=== PATIENT | female | born 1950 | race Caucasian/White ===

== ENCOUNTER → 2021-08-13 13:43 | Outpatient (CLI) | payer MEDICARE, SELFPAY ==
--- NOTE | 2021-08-13 13:57 | DI.RAD.S_ITS ---
PROCEDURE: XR LUMBAR SPINE MIN 4V INDICATIONS: low back pain TECHNIQUE: 5 views of the lumbar spine were acquired, including bilateral oblique views. COMPARISON: [facility], [facility], XR L-SPINE 2-3V, 02/13/2019, 16:55. FINDINGS: Bones: 5 nonrib-bearing vertebrae are present. There is mild grade 1 anterolisthesis of L4 on L5. Mild multilevel disc space narrowing and endplate osteophyte formation. Facet hypertrophy throughout the mid and lower lumbar spine. No vertebral body compression fractures. No suspicious bony lesions. Soft tissues: Overlying bowel gas pattern is normal. No suspicious soft tissue calcifications. IMPRESSION: Multilevel degenerative disc and facet disease. No acute fracture. No osseous lesion. If symptoms and/or clinical suspicion for pathology persist, further assessment with repeat, or advanced imaging (e.g., CT, MRI, or bone scan) may be helpful for further assessment. Dictated by: Steven Manning M.D. on 08/13/2021 at 16:12 Approved by: Steven Manning M.D. on 08/13/2021 at 16:38
--- NOTE | 2021-08-13 13:57 | DI.RAD.S_ITS ---
PROCEDURE: XR HIP W PEL IF DONE BILAT 2V INDICATIONS: bilateral hip pain TECHNIQUE: AP pelvis with lateral view(s) of the bilateral hip(s). COMPARISON: None. FINDINGS: Bones: No fractures or dislocations. Pelvic ring appears intact. No suspicious bony lesions. Mild joint space narrowing and periarticular osteophyte formation at the bilateral hip joints. Soft tissues: The visualized bowel gas pattern is normal. No suspicious soft tissue calcifications. IMPRESSION: Bilateral hip osteoarthritis. No acute fracture. No osseous lesion. If symptoms and/or clinical suspicion for pathology persist, further assessment with repeat, or advanced imaging (e.g., CT, MRI, or bone scan) may be helpful for further assessment. Dictated by: Steven Manning M.D. on 08/13/2021 at 16:14 Approved by: Steven Manning M.D. on 08/13/2021 at 16:40
== END ==
PROVIDERS: Referring Provider Physical Medicine & Rehabilitation; Visit Provider Physical Medicine & Rehabilitation
DX: M25.552 Pain in left hip (principal); M25.551 Pain in right hip; M54.50 Low back pain, unspecified; M16.0 Bilateral primary osteoarthritis of hip; M54.16 Radiculopathy, lumbar region; M43.16 Spondylolisthesis, lumbar region; F31.62 Bipolar disorder, current episode mixed, moderate; E66.01 Morbid (severe) obesity due to excess calories; R26.81 Unsteadiness on feet; Z68.41 Body mass index [BMI] 40.0-44.9, adult
CPT/HCPCS: 72110; 73521; 99214

== ENCOUNTER → 2021-09-03 13:20 | Outpatient (CLI) | payer MEDICARE, SELFPAY | PROVIDERS: PCP Family Medicine; Referring Provider Physical Medicine & Rehabilitation; Visit Provider Physical Medicine & Rehabilitation | DX: M43.16 Spondylolisthesis, lumbar region (principal); M54.16 Radiculopathy, lumbar region; Z53.20 Procedure and treatment not carried out because of patient's decision for unspecified reasons ==

== ENCOUNTER 2022-10-06 14:19 | Outpatient (CLI) | payer MEDICARE, SELFPAY ==
[2022-10-06] VITALS (8 sets, daily range): BP systolic 118–141; BP diastolic 55–75; PULSE 70–76; RESP 16–20; TEMP 36.4; O2SAT 95–100
--- NOTE | 2022-10-06 14:21 | DI.RAD.S_ITS ---
PROCEDURE: PAIN L INTERLAMINAR/CAUDAL INJ INDICATIONS: SPONDYLOSIS COMPARISON: None. FINDINGS: Fluoroscopic spot filming was performed to verify placement of spinal needles at the L5-S1 interlaminar space level(s), as labeled on the films. Appropriate location(s) of the needle tip(s) was confirmed by injection of iodinated contrast. IMPRESSION: Access needle in the L5-S1 interlaminar space for translaminar epidural steroid injection Dictated by: Nel Santizo MD, PhD on 10/06/2022 at 16:11 Approved by: Nel Santizo MD, PhD on 10/06/2022 at 16:11
[2022-10-06] MEDS: MIDAZOLAM 2 MG/2 ML VIAL IV (15:33)
[2022-10-06] MEDS: IOPAMIDOL 15 ML VIAL 3 ML INJ (15:38)
[2022-10-06] MEDS: DEXAMETHASONE 10 MG/ML VIAL 20 MG INJ (15:39)
[2022-10-06] MEDS: BUPIVACAINE 0.25% (PF) VIAL 2 ML INJ (15:39)
[2022-10-06] MEDS: BETAMETHASONE 30 MG/5 ML MDV 6 MG INJ (15:39)
--- NOTE | 2022-10-06 15:51 | P.PCN_ITS ---
Date/Time/Diagnoses Date of procedure: 10/06/22 Time of procedure: 15:51 Pre-procedure diagnosis: 1. HNP WITH RADICULAR FEATURES, 2. MULTILEVEL CENTRAL STENOSIS, Post-procedure diagnosis: same Procedure Notes Procedure: 1. FLUOROSCOPICALLY GUIDED CONTRAST CONTROLLED INTERLAMINAR EPIDURAL STEROID INJECTION - L5/S1 Indications: Meme is referred by Dr. Salvador for treatment of Bilateral Foraminal Stenosis L>R LE symptoms. Physician: Parker Cramer Total Fluoroscopy time (seconds): 7 Total sedation minutes: 11 Complications: none Procedure in detail & Post-procedure care: FINDINGS Multilevel Central Spinal Stenosis with Nerve Root Compression DESCRIPTION OF PROCEDURE Fluoroscopically guided, contrast-controlled L5/S1 translaminar epidural steroid injection. Following review of allergy and review of potential side effects and complications, including, but not necessarily limited to, infection, allergic reaction, local tissue breakdown, temporary as well as permanent nerve injury, paralysis, stroke and possible , the patient indicated that the patient understood and agreed to proceed. An informed consent document was signed by the patient, witnessed by a nurse, and placed in the patient's chart. Additionally, other treatment options including modalities, medications, and physical therapy were reviewed with the patient. After review of previous anaesthesic history and IV conscious sedation the patient was deemed safe to proceed with today?s procedure with IV conscious sedation as ASA class II designation. Safety time-out was performed to confirm patient ID, procedure to be performed and site of procedure. IV sedation was accomplished with a combination of 2mg of Versed administered by the RN after DO order, titrated to patient comfort during the course of the procedure while the patient remained responsive to all verbal commands. In the prone position, following sterile prep and drape of the lumbar region, the L5/S1 translaminar space was identified fluoroscopically. The skin was anesthetized via a 25-gauge, 1.5-inch needle with 1% lidocaine solution. At this point, a 22-gauge short bevel spinal needle was atraumatically introduced and advanced under fluoroscopic guidance into the region of the L5/S1 translaminar space. Depth was confirmed on lateral view. Radiological data, including multiple fluoroscopic views of the lumbar spine, reveal a spinal needle at the L5/S1 translaminar space. Lateral views then show placement of the needle in the epidural space. Subsequent views show contrast material flowing superiorly and inferiorly in the epidural space. No vascular or intrathecal uptake is observed. At this point, using loss of resistance technique with saline and air, the epidural space was entered. This was confirmed following negative aspiration with injection of approximately 1.5cc of Isovue 200, showing excellent epidural flow without vascular or intrathecal uptake. At this point, 1 cc of 1% lidoc odette solution combined with 3cc or 20mg of dexamethasone and 6mg of betamethasone was injected without incident. The patent tolerated the procedure without signs of symptoms of complications prior to transfer to the recovery area for further monitoring. The patient was then transferred to the recovery area where they were observed for an appropriate period of time after the injection. The patient reported a VAS score of 6 prior to the procedure and a post-procedure VAS of 0. POST OP INSTRUCTIONS The patient was provided a Pain Log to continue to record their response to the target-specific procedure prior to follow-up visit with their referring physician. Additionally, specific post-injection care instructions and a contact number to our office were provided if concerns arise regarding possible complications associated with the procedure are suspected.
== END 2022-10-06 16:05 | disposition home or self-care (01) ==
PROVIDERS: PCP Family Medicine; Referring Provider Physical Medicine & Rehabilitation; Visit Provider Physical Medicine & Rehabilitation
DX: M51.17 Intervertebral disc disorders with radiculopathy, lumbosacral region (principal); M48.07 Spinal stenosis, lumbosacral region
CPT/HCPCS: 62323; 99152; J0702; J1100; J2250; J3490

== ENCOUNTER → 2023-08-26 12:00 | Outpatient (CLI) | payer MEDICARE, SELFPAY | PROVIDERS: PCP Family Medicine; Referring Provider Internal Medicine Critical Care Medicine; Visit Provider Internal Medicine Critical Care Medicine | DX: R06.02 Shortness of breath (principal); J98.8 Other specified respiratory disorders | CPT/HCPCS: 94060; 94726; 94729 ==

== ENCOUNTER 2023-09-02 09:49 | Outpatient (CLI) | payer MEDICARE, SELFPAY ==
[2023-09-02] VITALS (8 sets, daily range): BP systolic 126–184; BP diastolic 61–78; PULSE 66–73; RESP 16–24; TEMP 36.4; O2SAT 93–96
--- NOTE | 2023-09-02 09:50 | DI.RAD.S_ITS ---
PROCEDURE: PAIN L INTERLAMINAR/CAUDAL INJ INDICATIONS: SPONDYLOSIS COMPARISON: , , PAIN L INTERLAMINAR/CAUDAL INJ, 10/06/2022, 16:39. FINDINGS: On Fluoroscopic spot filming was performed to verify placement of a spinal needle at the L5-S1 level, as labeled on the films. Appropriate location of the needle tip was confirmed by injection of iodinated contrast. IMPRESSION: No significant intraprocedural abnormality. Dictated by: Lizandro Mendez M.D. on 09/02/2023 at 11:26 Approved by: Lizandro Mendez M.D. on 09/02/2023 at 11:27
[2023-09-02] MEDS: MIDAZOLAM 2 MG/2 ML VIAL IV (11:00)
[2023-09-02] MEDS: BETAMETHASONE 30 MG/5 ML MDV 6 MG INJ (11:03)
[2023-09-02] MEDS: iopamidoL 15 ML VIAL 3 ML INJ (11:03)
[2023-09-02] MEDS: DEXAMETHASONE 10 MG/ML VIAL INJ (11:03)
[2023-09-02] MEDS: BUPIVACAINE 0.25% (PF) VIAL 2 ML INJ (11:04)
--- NOTE | 2023-09-02 11:12 | PM.PROC.IR.1 ---
Date/Time/Diagnoses Date of procedure: 09/02/23 Time of procedure: 11:12 Pre-procedure diagnosis: 1. HNP WITH RADICULAR FEATURES, 2. MULTILEVEL CENTRAL STENOSIS, Post-procedure diagnosis: same Procedure Notes Procedure: 1. FLUOROSCOPICALLY GUIDED CONTRAST CONTROLLED INTERLAMINAR EPIDURAL STEROID INJECTION - L5/S1 Indications: Meme is referred by Dr. Salvador for treatment of Bilateral Foraminal Stenosis L>R LE symptoms. Physician: Parker Cramer Total Fluoroscopy time (seconds): 12 Total sedation minutes: 11 Complications: none Procedure in detail & Post-procedure care: FINDINGS Multilevel Central Spinal Stenosis with Nerve Root Compression DESCRIPTION OF PROCEDURE Fluoroscopically guided, contrast-controlled L5/S1 translaminar epidural steroid injection. Following review of allergy and review of potential side effects and complications, including, but not necessarily limited to, infection, allergic reaction, local tissue breakdown, temporary as well as permanent nerve injury, paralysis, stroke and possible , the patient indicated that the patient understood and agreed to proceed. An informed consent document was signed by the patient, witnessed by a nurse, and placed in the patient's chart. Additionally, other treatment options including modalities, medications, and physical therapy were reviewed with the patient. After review of previous anaesthesic history and IV conscious sedation the patient was deemed safe to proceed with today?s procedure with IV conscious sedation as ASA class II designation. Safety time-out was performed to confirm patient ID, procedure to be performed and site of procedure. IV sedation was accomplished with a combination of 2mg of Versed administered by the RN after DO order, titrated to patient comfort during the course of the procedure while the patient remained responsive to all verbal commands. In the prone position, following sterile prep and drape of the lumbar region, the L5/S1 translaminar space was identified fluoroscopically. The skin was anesthetized via a 25-gauge, 1.5-inch needle with 1% lidocaine solution. At this point, a 22-gauge short bevel spinal needle was atraumatically introduced and advanced under fluoroscopic guidance into the region of the L5/S1 translaminar space. Depth was confirmed on lateral view. Radiological data, including multiple fluoroscopic views of the lumbar spine, reveal a spinal needle at the L5/S1 translaminar space. Lateral views then show placement of the needle in the epidural space. Subsequent views show contrast material flowing superiorly and inferiorly in the epidural space. No vascular or intrathecal uptake is observed. At this point, using loss of resistance technique with saline and air, the epidural space was entered. This was confirmed following negative aspiration with injection of approximately 1.5cc of Isovue 200, showing excellent epidural flow without vascular or intrathecal uptake. At this point, 1cc of 1% lidocaine solution combined with 2cc or 10mg of dexamethasone and 6mg of betamethasone was injected without incident. The patent tolerated the procedure without signs of symptoms of complications prior to transfer to the recovery area for further monitoring. The patient was then transferred to the recovery area where they were observed for an appropriate period of time after the injection. The patient reported a VAS score of 6 prior to the procedure and a post-procedure VAS of 0. POST OP INSTRUCTIONS The patient was provided a Pain Log to continue to record their response to the target-specific procedure prior to follow-up visit with their referring physician. Additionally, specific post-injection care instructions and a contact number to our office were provided if concerns arise regarding possible complications associated with the procedure are suspected.
== END 2023-09-02 11:39 | disposition home or self-care (01) ==
PROVIDERS: PCP Family Medicine; Referring Provider Physical Medicine & Rehabilitation; Visit Provider Physical Medicine & Rehabilitation
DX: M51.17 Intervertebral disc disorders with radiculopathy, lumbosacral region (principal); M48.07 Spinal stenosis, lumbosacral region
CPT/HCPCS: 62323; 99152; J0702; J1100; J2250; J3490

== ENCOUNTER → 2023-10-13 10:03 | Outpatient (CLI) | payer MEDICARE, SELFPAY ==
--- NOTE | 2023-10-13 10:30 | DI.CT.S_ITS ---
PROCEDURE: CT CHEST W CON INDICATIONS: Restrictive lung disease TECHNIQUE: After the administration of intravenous contrast, 5 mm thick sections acquired from the pulmonary apices to the posterior costophrenic angles. 1 mm axial lung, 5 mm thick coronal and sagittal reformats and 7 mm axial MIP were acquired. For radiation dose reduction, the following was used: automated exposure control, adjustment of mA and/or kV according to patient size. COMPARISON: [facility], CT, CT ANGIO CHEST PE, 09/16/2021, 1:44. FINDINGS: Image quality: Diagnostic. Lungs and pleura: No acute air space opacities. No pleural effusions or pneumothorax. Central and peripheral airways are patent and normal in caliber. Mediastinum: Heart size is normal. No pericardial effusion. No mediastinal or hilar adenopathy by size criteria. Thoracic aorta and central pulmonary arteries are normal in size. Calcification of the aortic valve. Minimal LAD and left circumflex coronary vessel calcification. Minimal calcification of the thoracic aorta. Esophagus is normal in caliber. No hiatal hernia. Bones and chest wall: No suspicious bony lesions. No vertebral body compression fractures moderate multilevel degenerative changes of the spine. Vacuum phenomenon in the T8 vertebral body. No axillary or supraclavicular adenopathy by size criteria. No thyroid nodules which require sonographic follow up, per consensus guidelines. Hypodense nodule in the isthmus measuring 9 mm (2/14). Upper Abdomen: Visualized upper abdomen demonstrates no acute findings. Compared to CT dated September 16, 2021, left adrenal mass is similar to slightly increased in size measuring 4.1 x 3.4 cm (2/60), previously 3.8 x 3.2 cm (4/139) with new small hypodense foci . IMPRESSION: 1. Compared to CT chest dated September 16, 2021, no new or enlarging solid pulmonary nodule or consolidation. 2. Partially visualized left adrenal mass is similar to slightly increased in size measuring 4.1 x 3.4 cm, previously 3.8 x 3.2 cm with new small hypodense foci which is indeterminate. Recommend a nonemergent MRI adrenal mass protocol for further evaluation. Dictated by: Ronnie Paez M.D. on 10/13/2023 at 20:00 Approved by: Ronnie Paez M.D. on 10/13/2023 at 20:18
== END ==
PROVIDERS: PCP Family Medicine; Referring Provider Internal Medicine Critical Care Medicine; Visit Provider Internal Medicine Critical Care Medicine
DX: J98.4 Other disorders of lung (principal); E27.9 Disorder of adrenal gland, unspecified
CPT/HCPCS: 71260; Q9967

== ENCOUNTER 2024-01-04 13:28 | Outpatient (CLI) | payer MEDICARE, SELFPAY ==
[2024-01-04] VITALS (7 sets, daily range): BP systolic 151–185; BP diastolic 66–93; PULSE 79–87; RESP 12–20; TEMP 36.6; O2SAT 93–96
--- NOTE | 2024-01-04 14:30 | DI.RAD.S_ITS ---
PROCEDURE: PAIN L INTERLAMINAR/CAUDAL INJ INDICATIONS: STENOSIS COMPARISON: [facility], XA, PAIN L INTERLAMINAR/CAUDAL INJ, 09/02/2023, 11:03. FINDINGS: Fluoroscopic spot filming was performed to verify placement of spinal needles at the left L4-L5 level(s), as labeled on the films. Appropriate location(s) of the needle tip(s) was confirmed by injection of iodinated contrast. IMPRESSION: Intraoperative guidance provided. Dictated by: John Headley M.D. on 01/04/2024 at 17:49 Approved by: John Headley M.D. on 01/04/2024 at 17:50
[2024-01-04] MEDS: MIDAZOLAM 2 MG/2 ML VIAL IV (15:00)
[2024-01-04] MEDS: BETAMETHASONE 30 MG/5 ML MDV 6 MG INJ (15:06)
[2024-01-04] MEDS: BUPIVACAINE 0.25% (PF) VIAL 2 ML INJ (15:06)
[2024-01-04] MEDS: DEXAMETHASONE 10 MG/ML VIAL INJ (15:07)
[2024-01-04] MEDS: iopamidoL 15 ML VIAL 3 ML INJ (15:07)
--- NOTE | 2024-01-04 15:22 | P.PCN_ITS ---
Date/Time/Diagnoses Date of procedure: 01/04/24 Time of procedure: 15:22 Pre-procedure diagnosis: 1. HNP WITH RADICULAR FEATURES, 2. MULTILEVEL CENTRAL STENOSIS, Post-procedure diagnosis: same Procedure Notes Procedure: 1. FLUOROSCOPICALLY GUIDED CONTRAST CONTROLLED INTERLAMINAR EPIDURAL STEROID INJECTION -L4/5 Indications: Meme is referred by Dr. Salvador for treatment of Bilateral Foraminal Stenosis R>L LE symptoms. Physician: Parker Cramer Total Fluoroscopy time (seconds): 11 Total sedation minutes: 14 Complications: none Procedure in detail & Post-procedure care: FINDINGS Multilevel Central Spinal Stenosis with Nerve Root Compression DESCRIPTION OF PROCEDURE Fluoroscopically guided, contrast-controlled L4/5 translaminar epidural steroid injection. Following review of allergy and review of potential side effects and complications, including, but not necessarily limited to, infection, allergic reaction, local tissue breakdown, temporary as well as permanent nerve injury, paralysis, stroke and possible , the patient indicated that the patient understood and agreed to proceed. An informed consent document was signed by the patient, witnessed by a nurse, and placed in the patient's chart. Additionally, other treatment options including modalities, medications, and physical therapy were reviewed with the patient. After review of previous anaesthesic history and IV conscious sedation the patient was deemed safe to proceed with today?s procedure with IV conscious sedation as ASA class II designation. Safety time-out was performed to confirm patient ID, procedure to be performed and site of procedure. IV sedation was accomplished with a combination of 2mg of Versed was administered by the RN after DO order, titrated to patient comfort during the course of the procedure while the patient remained responsive to all verbal commands In the prone position, following sterile prep and drape of the lumbar region, the L4/5 translaminar space was identified fluoroscopically. The skin was anesthetized via a 25-gauge, 1.5inch needle with 1% lidocaine solution. At this point, a 22-gauge short bevel spinal needle was atraumatically introduced and advanced under fluoroscopic guidance into the region of the L4/5 translaminar space. Depth was confirmed on lateral view. Radiological data, including multiple fluoroscopic views of the lumbar spine, reveal a spinal needle at the L4/5 translaminar space. Lateral views then show placement of the needle in the epidural space. Subsequent views show contrast material flowing superiorly and inferiorly in the epidural space. No vascular or intrathecal uptake is observed. At this point, using loss of resistance technique with saline and air, the epidural space was entered. This was confirmed following negative aspiration with injection of approximately 1.5cc of Isovue 200, showing excellent epidural flow without vascular or intrathecal uptake. At this point, 1cc of 1% lidocaine solution combined with 2cc or 10mg of dexamethasone and 6mg betamethasone was injected without incident. The patient tolerated the procedure well without signs or symptoms of complications prior to transfer to the recovery area continued monitoring without incident. The patient was then transferred to the recovery area where they were observed for an appropriate period of time after the injection. The patient reported a VAS score of 8 prior to the procedure and a post- procedure VAS of 1. POST OP INSTRUCTIONS The patient was provided a Pain Log to continue to record their response to the target-specific procedure prior to follow-up visit with their referring physician. Additionally, specific post-injection care instructions and a contact number to our office were provided if concerns arise regarding possible complications associated with the procedure are suspected.
== END 2024-01-04 15:35 | disposition home or self-care (01) ==
PROVIDERS: PCP Family Medicine; Referring Provider Physical Medicine & Rehabilitation; Visit Provider Physical Medicine & Rehabilitation
DX: M51.16 Intervertebral disc disorders with radiculopathy, lumbar region (principal); M48.061 Spinal stenosis, lumbar region without neurogenic claudication
CPT/HCPCS: 62323; 99152; J0702; J1100; J2250; J3490